=== PATIENT | male | born 2000 | race Two or more races ===

== ENCOUNTER 2024-08-09 19:38 | Emergency (ER) | payer OTHER ==
[~2024-08-09] VITALS: Ht 175.3 cm; Wt 70.3 kg
[2024-08-09] MEDS ORDERED: SULF1TAB48 PO (20:00)
[2024-08-09] MEDS ORDERED: CEPH-570 PO (20:00)
[2024-08-09 20:05] VITALS: BP 142/83; TEMP 98.1; O2SAT 98
== END 2024-08-09 20:11 | disposition home or self-care (01) ==
LOC: ER 19:50
DX: S80.211A Abrasion, right knee, initial encounter (principal); L03.115 Cellulitis of right lower limb; W01.0XXA Fall on same level from slipping, tripping and stumbling without subsequent striking against object, initial encounter; Y93.89 Activity, other specified; Y92.89 Other specified places as the place of occurrence of the external cause; Y99.8 Other external cause status